=== PATIENT | female | born 1950 | race Caucasian/White ===

== ENCOUNTER 2018-05-03 14:38 | Inpatient (IN) | payer MEDICARE, MEDICAID ==
[~2018-05-03] VITALS: Ht 157.5 cm; Wt 71.2 kg
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
[2018-05-03] MEDS ORDERED: ACETAMINOPHEN 325 MG TABLET PO PRN (15:30)
[2018-05-03] MEDS ORDERED: ZOLPIDEM TARTRATE 5 MG TABLET PO PRN (15:30)
[2018-05-03] MEDS ORDERED: MAGNESIUM HYDROXIDE 30 ML UDC PO PRN (15:30)
[2018-05-03] MEDS ORDERED: MAG HYDROX/AL HYDROX/SIMETH 30 ML UDC PO PRN (15:30)
[2018-05-03] MEDS ORDERED: LORAZEPAM 0.5 MG TABLET PO PRN (15:30)
[2018-05-03 15:52] VITALS: BP 127/79
[2018-05-03 16:03] VITALS: BP 127/79
--- NOTE | 2018-05-03 19:30 | NUR ---
GPS RN NOTE, RECEIVED PATIENT AWAKE AND IN BED, NO S/S OR COMPLAINTS OF PAIN AT THIS TIME. PATIENT DISPLAYING NO S/S OF APPARENT DISTRESS AT THIS TIME. PATIENT BREATHING IS UNLABORED WITH EQUAL RISE AND FALL OF THE CHEST. PATIENT ALERT AND ORIENTED X 4 WITH A SPO2 95%. PATIENT IS MED COMPLIANT, DISORGANIZED, COOPERATIVE, DEPRESSED, NEEDS REORIENTATION. PATIENT DENIES SUICIDE IDEATIONS AND HOMICIDAL IDEATIONS AT THIS TIME. PATIENT ASSISTED WITH TURNING AND REPOSITIONING Q2HR AND PRN FOR COMFORT AND CIRCULATION. PATIENT HAS NO NEEDS AT THIS TIME. PATIENT EDUCATED ON THE USE OF THE CALL MARCH. PATIENT BED SIDE RAILS UP X2 FOR SAFETY, BED IS LOCKED AND LOW WILL CONTINUE TO MONITOR AND MAINTAIN AND MAINTAIN SAFETY.
[2018-05-03 20:00] VITALS: BP 105/76
[2018-05-04 08:00] VITALS: BP 113/71
[2018-05-04 08:15] LABS: ALBUMIN 3.2 g/dL (3.4-5.0); BILIRUBIN,TOTAL 0.3 mg/dL (0.2-1.0); CALCIUM, SERUM 9.1 mg/dL (8.5-10.1); CREATININE 0.9 mg/dL (0.6-1.3); POTASSIUM 4.3 mmol/L (3.5-5.1); TOTAL PROTEIN, SERUM 6.8 g/dL (6.4-8.2)
--- NOTE | 2018-05-04 11:30 | NUR ---
CHELSEA contacted pts daughter Sarah Cooper [phone] to inform her pt is hospitalized and also to confirm pt is working and it is safe for pt to return home.
--- NOTE | 2018-05-04 12:58 | NUR ---
INITIAL DISCHARGE NOTE: [facility] [id number] [facility] SW contacted pts daughter Sarah Cooper [phone] to confirm pt is working and it is safe for pt to return home. CHELSEA will help form a safe discharge home in collaboration with .
[2018-05-04 16:00] VITALS: BP 114/61
[2018-05-04 20:29] VITALS: BP 125/74
[2018-05-04] MEDS ORDERED: QUETIAPINE FUMARATE 100 MG TABLET PO SCH (22:00)
[2018-05-05 08:00] VITALS: BP 109/54
--- NOTE | 2018-05-05 10:50 | NUR ---
RN NOTE:PATIENT DISCHARGED AMA ,REFUSED PRESCRIPTION AND REFERRAL ,HARMONY PISTON MAKER STATED "WHEN PATIENT IS AMA WE DON'T GIVE TOKEN ".PATIENT ALERT ,ORIENTED X4 ,DENIES SUICIDAL IDEATION DENIES HOMICIDAL IDEATION , DENIES AUDITORY VISUAL HALLUCINATION .
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
--- NOTE | 2018-05-05 11:33 | NUR ---
AMA DISCHARGE NOTE: Pt discharged against medical advice home to [address] [facility] [address] . Pt was provided with a referral to [place] [address] [facility] [phone] to schedule an appointment for mental health services. Pt denied suicidal/homicidal ideations stating "Its up to the Lord to take me, there's no way I'll kill myself." Pt denied visual/auditory hallucinations. Pts mood appeared happy and affect was appropriate to situation.
== END 2018-05-05 10:50 | disposition left against medical advice (07) | DRG 881 ==
LOC: GPS 14:38
PROVIDERS: ADMIT Psychiatry & Neurology Psychiatry; ATTEND Internal Medicine
DX: F32.9 Major depressive disorder, single episode, unspecified (principal); R45.851 Suicidal ideations; F23 Brief psychotic disorder; F41.9 Anxiety disorder, unspecified
CPT/HCPCS: 36415; 80053-TC; 80061-TC; 87081-TC; A6402